=== PATIENT | male | born 1945 | race Caucasian/White ===

== ENCOUNTER 2017-10-05 17:47 | Emergency (ER) | payer MEDICARE, OTHER ==
[2017-10-05 18:12] VITALS: BP 160/60
--- NOTE | 2017-10-05 18:49 | UC ---
Respiratory Complaint HPI - HPI Summary HPI Summary: cough x 5 days productive cough , + chest congestion , pnd no fever, no chills, no sob - History of Current Complaint Chief Complaint: UCRespiratory Stated Complaint: PAINFUL COUGHING, CONGESTION Time Seen by Provider: 10/05/17 18:20 Hx Obtained From: Patient Onset/Duration: Gradual Onset, Lasting Days - 5, Still Present Timing: Constant Severity Initially: Moderate Severity Currently: Moderate Pain Intensity: 3 Pain Scale Used: 0-10 Numeric Character: Cough: Productive - yellow Aggravating Factors: Exertion, Deep Breaths Alleviating Factors: Nothing Associated Signs And Symptoms: Positive: URI, Nasal Congestion. Negative: Dyspnea, Fever, Chills, Pleuritic Chest Pain, Wheezing, Hemoptysis, Dizziness, Calf Pain, Calf Swelling - Allergies/Home Medications Allergies/Adverse Reactions: Allergies Allergy/AdvReac Type Severity Reaction Status Date / Time No Known Allergies Allergy Verified 10/05/17 18:12 Home Medications: Home Medications Aspirin [Shabana Aspirin EC Low Dose 81 MG] 10/05/17 [History] Calcium Carbonate/Vitamin D3 [Caltrate 600+D] 1 chw PO 10/05/17 [History] Folic Acid 1 mg PO 10/05/17 [History] Methotrexate TAB* 2.5 mg PO Q7D 10/05/17 [History Confirmed 10/05/17] Pravastatin (NF) [Pravachol (NF)] 10/05/17 [History] Taurine [Darío Taurine] 1,000 mg PO 10/05/17 [History] predniSONE [Prednisone] 5 mg PO 10/05/17 [History] PMH/Surg Hx/FS Hx/Imm Hx Cardiovascular History: Hypertension - Surgical History Surgical History: None Surgery Procedure, Year, and Place: throat ca surgery - Family History Known Family History: Positive: Hypertension - Social History Alcohol Use: None Substance Use Type: None Smoking Status (MU): Never Smoked Tobacco Review of Systems Constitutional: Negative Skin: Negative Eyes: Negative ENT: Nasal Discharge Respiratory: Cough Cardiovascular: Negative Gastrointestinal: Negative Genitourinary: Negative Is Patient Immunocompromised?: No All Other Systems Reviewed And Are Negative: Yes Physical Exam Triage Information Reviewed: Yes Appearance: Well-Appearing, No Pain Distress, Well-Nourished Vital Signs: Initial Vital Signs Temp 98.0 F 10/05/17 18:06 Pulse 95 10/05/17 18:06 Resp 18 03/07/18 18:06 BP 160/60 10/05/17 18:06 Pulse Ox 97 10/05/17 18:06 Vital Signs Reviewed: Yes Eyes: Positive: Conjunctiva Clear ENT: Positive: Normal ENT inspection, Hearing grossly normal, Pharynx normal Neck: Positive: Supple, Nontender, No Lymphadenopathy Respiratory: Positive: Chest non-tender, Lungs clear, Normal breath sounds Cardiovascular: Positive: RRR, No Murmur, Pulses Normal Skin Exam: Normal UC Diagnostic Evaluation - Laboratory O2 Sat by Pulse Oximetry: 97 Respiratory Course/Dx - Differential Dx/Diagnosis Provider Diagnoses: Bronchitis Discharge - Discharge Plan Condition: Stable Disposition: HOME Prescriptions: Albuterol HFA INHALER* [Ventolin HFA Inhaler*] 2 puff INH Q6H PRN #1 mdi PRN Reason: Wheezing Azithromycin TAB* [Zithromax TAB (Z-APOLLO) 250 mg #6 tabs] 2 tab PO .TODAY, THEN 1 DAILY #1 apollo Benzonatate CAP* [Tessalon 100 MG CAP*] 100 mg PO TID PRN #21 cap PRN Reason: Cough Patient Education Materials: Acute Bronchitis (ED) Referrals: Rand Orona MD [Primary Care Provider] - 7 Days
[2017-10-05] MEDS ORDERED: PPD test dose* 5 TU/0.1 ML TEST (*USE PPD ORDER SET*) ONE (20:25)
== END 2017-10-05 18:34 | disposition home or self-care (01) ==
LOC: UCCORT 17:47
DX: J40 Bronchitis, not specified as acute or chronic (principal); I10 Essential (primary) hypertension
CPT/HCPCS: 99212; G0463

== ENCOUNTER 2017-12-27 10:38 | Emergency (ER) | payer MEDICARE, OTHER ==
[2017-12-27 11:13] VITALS: BP 146/62
--- NOTE | 2017-12-27 11:38 | UC ---
Respiratory Complaint HPI - HPI Summary HPI Summary: cough x 7 days cough is dry , + nasal congest, sore throat , wheezing +fever, chills, sever left ear pain - History of Current Complaint Chief Complaint: UCRespiratory Stated Complaint: SORE THROAT LEFT EAR CONGESTION Time Seen by Provider: 12/27/17 11:05 Hx Obtained From: Patient Onset/Duration: Gradual Onset, Lasting Days - 7, Still Present Timing: Constant Severity Initially: Moderate Severity Currently: Moderate Pain Intensity: 3 Character: Cough: Nonproductive Aggravating Factors: Exertion, Deep Breaths Alleviating Factors: Nothing Associated Signs And Symptoms: Positive: Fever, Chills, URI, Nasal Congestion. Negative: Dyspnea, Pleuritic Chest Pain, Wheezing, Hemoptysis, Dizziness, Calf Pain, Calf Swelling, Edema, Hoarseness, Sinus Discomfort - Allergies/Home Medications Allergies/Adverse Reactions: Allergies Allergy/AdvReac Type Severity Reaction Status Date / Time No Known Allergies Allergy Verified 12/27/17 11:15 PMH/Surg Hx/FS Hx/Imm Hx - Additional Past Medical History Additional PMH: throat cancer Endocrine History: Thyroid Disease - Surgical History Surgical History: None Surgery Procedure, Year, and Place: throat ca surgery 2012 - Family History Known Family History: Positive: Hypertension - Social History Alcohol Use: None Substance Use Type: None Smoking Status (MU): Never Smoked Tobacco Review of Systems Constitutional: Fever, Chills, Fatigue Skin: Negative Eyes: Negative ENT: Sore Throat, Ear Ache, Nasal Discharge Respiratory: Cough Cardiovascular: Negative Is Patient Immunocompromised?: No All Other Systems Reviewed And Are Negative: Yes Physical Exam Triage Information Reviewed: Yes Appearance: Well-Appearing, No Pain Distress, Well-Nourished Vital Signs: Initial Vital Signs Temp 98.4 F 12/27/17 11:03 Pulse 72 12/27/17 11:03 Resp 18 12/27/17 11:03 BP 146/62 12/27/17 11:03 Pulse Ox 97 12/27/17 11:03 Vital Signs Reviewed: Yes Eyes: Positive: Conjunctiva Clear ENT: Positive: Normal ENT inspection, Hearing grossly normal, Pharyngeal erythema, Nasal drainage, TM red - left ear. Negative: Tonsillar swelling, Tonsillar exudate Neck: Positive: Supple, Nontender, No Lymphadenopathy Respiratory: Positive: Chest non-tender, Lungs clear, Normal breath sounds, No respiratory distress Cardiovascular: Positive: RRR, No Murmur, Pulses Normal Skin Exam: Normal UC Diagnostic Evaluation - Laboratory O2 Sat by Pulse Oximetry: 97 Respiratory Course/Dx - Differential Dx/Diagnosis Provider Diagnoses: otitis media left ear. bronchitis Discharge - Sign-Out/Discharge Documenting (check all that apply): Discharge/Admit/Transfer - Discharge Plan Condition: Stable Disposition: HOME Prescriptions: Amoxicillin PO (*) [Amoxicillin 875 MG (*)] 875 mg PO BID #20 tab Codeine Phosphate/Guaifenesin [Cheratussin AC] 10 ml PO Q8H #120 ml MDD 30 ml Patient Education Materials: Ear Infection (ED), Acute Bronchitis (ED) Referrals: Rand Orona MD [Primary Care Provider] - 7 Days - Billing Disposition and Condition Condition: STABLE Disposition: HOME
== END 2017-12-27 11:42 | disposition home or self-care (01) ==
LOC: UCCORT 10:38
DX: H66.92 Otitis media, unspecified, left ear (principal); J40 Bronchitis, not specified as acute or chronic; E07.9 Disorder of thyroid, unspecified; Z82.49 Family history of ischemic heart disease and other diseases of the circulatory system; Z85.818 Personal history of malignant neoplasm of other sites of lip, oral cavity, and pharynx
CPT/HCPCS: 99212; G0463

== ENCOUNTER 2019-04-09 07:45 | Emergency (ER) | payer MEDICARE, OTHER ==
--- NOTE | 2019-04-09 08:04 | ED ---
Complex/Multi-Sys Presentation - HPI Summary HPI Summary: This patient is a 73 year old male accompanied by his presenting to [facility] with a chief complaint of difficulty using his right upper extremity since 2 days ago. He also reports cramps in neck and back of head. His also reports confusion since 2 hours ago. She states he has had difficulty with coordination and has had aphasia as well. 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 Pt denies any fever, chills, erythema of eyes, sore throat, CP, SOB, cough, abdominal pain, N/V, dysuria, hematuria, myalgia, edema, rash, or dizziness. His vital signs in the room are HR 59 BPM, BP 183/70. The patient has had no Hx of CVA or TIA. - History Of Current Complaint Chief Complaint: EDAltMentalStatus Time Seen by Provider: 04/09/19 07:58 Hx Obtained From: Patient, Family/Land Resource Specialist Onset/Duration: Lasting Hours, Lasting Days Associated Signs And Symptoms: Positive: Confusion, Weakness - Allergies/Home Medications Allergies/Adverse Reactions: Allergies Allergy/AdvReac Type Severity Reaction Status Date / Time No Known Allergies Allergy Verified 04/09/19 08:01 Home Medications: Home Medications Acyclovir 200 mg PO DAILY 04/09/19 [History Confirmed 04/09/19] Cholecalciferol (Vitamin D3) [Vitamin D3] 2,000 unit PO DAILY 04/09/19 [History Confirmed 04/09/19] Doxycycline (NF) 5 ml PO DAILY 04/09/19 [History Confirmed 04/09/19] Labetalol HCl 200 mg PO BID 04/09/19 [History Confirmed 04/09/19] Levothyroxine TAB* 125 mcg PO DAILY 04/09/19 [History Confirmed 04/09/19] Revlimid 10 mg PO DAILY 04/09/19 [History Confirmed 04/09/19] Sulfamethoxazole/Trimethoprim 5 ml PO SEE INSTRUCTIONS 04/09/19 [History Confirmed 04/09/19] Tamsulosin CAP* [Flomax CAP*] 0.4 mg PO DAILY 04/09/19 [History Confirmed ] amLODIPine TAB* [Norvasc 5 mg TAB*] 5 mg PO DAILY 04/09/19 [History Confirmed ] traMADol TAB* 50 mg PO DAILY PRN 04/09/19 [History Confirmed 04/09/19] PMH/Surg Hx/FS Hx/Imm Hx Endocrine/Hematology History: Reports: Hx Thyroid Disease Denies: Hx Diabetes Cardiovascular History: Reports: Hx Hypertension Denies: Hx Pacemaker/ICD History: Denies: Hx Dialysis, Hx Renal Disease Musculoskeletal History: Denies: Hx Rheumatoid Arthritis, Hx Osteoporosis Sensory History: Denies: Hx Hearing Aid Psychiatric History: Denies: Hx Panic Disorder - Cancer History Cancer Type, Location and Year: THROAT CANCER 2010 Hx Chemotherapy: Yes - FINSISHED 2012 Hx Radiation Therapy: Yes - FINISHED 2012 - Surgical History Surgery Procedure, Year, and Place: throat ca surgery - PARTIAL TONSILECTOMY AND BX 2010 Infectious Disease History: No Infectious Disease History: Denies: Traveled Outside the [place] in Last 30 Days - Family History Known Family History: Positive: Hypertension - Social History Alcohol Use: None Substance Use Type: Reports: None Smoking Status (MU): Never Smoked Tobacco Review of Systems Negative: Fever, Chills Positive: Other - Loss of vision in left visual field. Negative: Erythema Negative: Sore Throat Negative: Chest Pain Negative: Shortness Of Breath, Cough Negative: Abdominal Pain, Vomiting, Nausea Negative: dysuria, hematuria Positive: Other - Neck and back of the head pain. Negative: Myalgia, Edema Negative: Rash Neurological: Other - Pos altered mental status, aphasia. Neg: Dizziness Positive: Weakness - Right arm All Other Systems Reviewed And Are Negative: Yes Physical Exam - Summary Physical Exam Summary: Constitutional: Well-developed, Well-nourished, Alert. (-) Distressed Skin: Warm, Dry HENT: Normocephalic; Atraumatic Eyes: Conjunctiva normal Neck: Musculoskeletal ROM normal neck. (-) JVD, (-) Stridor, (-) Tracheal deviation Cardio: Rhythm regular, bradycardia, Intact distal pulses; The pedal pulses are 2+ and symmetric. Radial pulses are 2+ and symmetric. (+)Systolic Ejection Murmur grade 3/6. Pulmonary/Chest wall: Effort normal. (-) Respiratory distress, (-) Wheezes, (-) Rales Abd: Soft. (-) Tenderness, (-) Distension, (-) Guarding, (-) Rebound Musculoskeletal: (-) Edema Lymph: (-) Cervical adenopathy Neuro: Alert, Oriented x3, Strength normal, Cranial nerves II-XII are grossly intact. (-) Dysmetria, (-) Nystagmus, (-) Ataxia by finger to nose testing, (-) Sensory deficit. He appears to have some word finding difficulty. Psych: Mood and affect Normal Triage Information Reviewed: Yes Vital Signs On Initial Exam: Initial Vitals Temp Pulse Resp BP Pulse Ox 97.6 F 55 18 165/72 98 04/09/19 07:49 04/09/19 07:49 04/09/19 07:49 04/09/19 07:49 04/09/19 07:49 Vital Signs Reviewed: Yes Diagnostics - Vital Signs Vital Signs Temp Pulse Resp BP Pulse Ox 04/09/19 07:49 97.6 F 55 18 165/72 98 - Laboratory Result Diagrams: 04/09/19 08:07 04/09/19 08:07 Lab Statement: Any lab studies that have been ordered have been reviewed, and results considered in the medical decision making process. - Radiology CXR Radiology Interpretation Completed By: Radiologist Summary of Radiographic Findings: Low lung volumes with linear atelectasis of the right lung base. ED Provider has reviewed this report. - CT Brain CT Interpretation Completed By: Radiologist Summary of CT Findings: No evidence for gross acute infarct, mass effect or hemorrhage. ED provider has reviewed this report. Head CTA CT Interpretation Completed By: Radiologist Summary of CT Findings: 1. Limited Study. 2. Atherosclerosis. 3. Short segment high-grade preocclusive stenosis of the distal left internal carotid artery (99% plus by nascet criteria). 4. Approximate 70 % short segment stenosis of the proximal right internal carotid artery. 4. No aneurysm. Vascular malformation, occlusion, or stenosis of the visualized intracranial circulation. ED Provider has reviewed this report. Cervical Spine CT CT Interpretation Completed By: Radiologist Summary of CT Findings: 1. No evidence for fracture. 2. Moderate to severe cervical spondylosis. 3. Nonspecific lucent lesion within the C3 vertebrak body possibly related to the patient's histroy of multiple myeloma. ED Provider has reviewed this report. - EKG 0807 Cardiac Rate: Bradycardia - 56 BPM EKG Rhythm: Sinus Bradycardia Summary of EKG Findings: No STEMI. National Institutes Of Health - NIH Scale Level of Consciousness: Alert/Keenly Responsive Ask Patient the Month and His/Her Age: Both Correct Ask Pt to Open/Close Eyes and Electric Motor Repairman/Release Non-Paretic Hand: Both Correctly Best Gaze (Only Horizontal Eye Movement): Normal Visual Field Testing: No Visual Loss Facial Paresis-Pt to Smile & Close Eyes or Grimace Symmetry: Normal/Symmetrical Motor Function - Right Arm: Drifts LT 10 seconds Motor Function - Left Arm: No Drift-Holds 10 Seconds Motor Function - Right Leg: Drifts LT 10 seconds Motor Function - Left Leg: No Drift-Holds 10 Seconds Limb Ataxia-Must be out of Proportion to Weakness Present: Absent Sensory (Use Pinprick to Test Arms/Legs/Trunk/Face): Pinprick Less on Affected Best Language (Describe Picture, Name Items): No Aphasia Dysarthria (Read Several Words): Normal Extinction and Inattention: No Abnormality Total Score: 3 Complex Multi-Symp Course/Dx Course Of Treatment: This patient is a 73 year old male accompanied by his presenting to [facility] with a chief complaint of difficulty using his right upper extremity and altered mental status since 2 days ago. Physical exam revealed a 3 /6 grade systolic ejection murmer. The patient had some difficulty finding words. CTA Head revealed 1. Limited Study. 2. Atherosclerosis. 3. Short segment high-grade preocclusive stenosis of the distal left internal carotid artery (99% plus by nascet criteria). 4. Approximate 70 % short segment stenosis of the proximal right internal carotid artery. 4. No aneurysm. Vascular malformation, occlusion, or stenosis of the visualized intracranial circulation. Patient will be signed out to Dr. Burns at 1030 pending transfer for vascular surgery. - Diagnoses Provider Diagnoses: Stenosis of left internal carotid artery Discharge ED - Sign-Out/Discharge Documenting (check all that apply): Sign-Out Patient Signing out patient TO: Sonu Burns Patient Received Moderate/Deep Sedation with Procedure: No - Discharge Plan Condition: Stable Disposition: TRANS HIGHER LVL OF CARE FAC Referrals: Kirsten Ortzi MD [Primary Care Provider] - - Attestation Statements Document Initiated by Scribe: Yes Documenting Scribe: Rafat Tam Provider For Whom Scribe is Documenting (Include Credential): Ken Barlow MD Scribe Attestation: Rafat Harris, scribed for Ken Barlow MD on 04/09/19 at 1149. Status of Scribe Document: Ready
[2019-04-09 08:21] LABS: ABS Eosinophils 0.2 10^3/ul (0-0.6); ABS Lymphocytes 0.7 10^3/ul (1.0-4.8); ABS Monocytes 0.3 10^3/ul (0-0.8); ABS Neutrophils 3.5 10^3/ul (1.5-7.7); Eosinophil % 3.5 %; Hematocrit 37 % (42-52); Hemoglobin 12.4 g/dL (14.0-18.0); Lymphocyte % 14.9 %; Mean Corpuscular HGB Conc 34 g/dL (31-36); Mean Corpuscular Hemoglobin 31 pg (27-31); Mean Corpuscular Volume 91 fL (80-94); Mean Platelet Volume 7.1 fL (7.4-10.4); Nucleated Red Blood Cells % 0.2; Platelet Count 108 10^3/uL (150-450); Red Blood Count 4.05 10^6 /uL (4.18-5.48); Red Cell Distribution Width 14 % (10-15); White Blood Count 4.7 10^3/uL (3.5-10.8)
[2019-04-09 08:26] LABS: INR 0.96 (0.82-1.09)
[2019-04-09 08:33] LABS: Albumin/Globulin Ratio 2.4 (1-3); BUN/Creatinine Ratio 14.5 (8-20); Calcium 8.6 mg/dL (8.6-10.3); EGFR African American 58.1 (>60); Globulin 1.7 g/dL (2-4); Potassium 4.1 mmol/L (3.5-5.0); Total Bilirubin 0.4 mg/dL (0.2-1.0); Total Protein 5.7 g/dL (6.4-8.9)
[2019-04-09] MEDS ORDERED: Iodixanol* (CONTRAST) 320 MG/ML 100 ML SDV IV ONE (08:40)
--- OUTSIDE RECORDS SUMMARY | 2019-04-09 08:40 | XMS REPORT | Continuity of Care Document ---
:1945 External Reference #:[id number] Author Name Umesh Chinchilla M.D. Address [address] [place] [address] Care Team Providers Name Role Phone Andrade Connelly M.D. - Hematology & Care Team Information [facility] Roel Queen M.D. - Care Team Information [facility] [phone] Otolaryngology Umesh Lawton MD - Rheumatology Care Team Information [facility] [phone] Rand Orona M.D. - Family Medicine Care Team Information [facility] Problems Active Problems Provider Date Giant cell arteritis Onset: Hyperthyroidism Onset: Primary malignant neoplasm of ear, nose Onset: AND/OR throat Migraine with aura Umesh Chinchilla M.D. Onset: 02/11/2015 Nuclear senile cataract Umesh Chinchilla M.D. Onset: 02/11/2015 Combined form of senile cataract Umesh Chinchilla M.D. Onset: 08/15/2015 Multiple myeloma Umesh Chinchilla M.D. Onset: 03/20/2019 Hemopoietic stem cell transplant Umesh Chinchilla M.D. Onset: 03/20/2019 Social History Type Date Description Comments Sex Unknown ETOH Use Rarely consumes alcohol Tobacco Use Start: Unknown Patient has never smoked Recreational Drug Use Denies Drug Use Smoking Status Reviewed: 03/20/19 Patient has never smoked Allergies, Adverse Reactions, Alerts Description No Known Drug Allergies Medications Active Medications SIG Qnty Indications Ordering Date Provider Pravastatin Sodium Rand Orona 20mg M.D. Tablets Levothyroxine Sodium take 1 tablet once Unknown daily 125mcg Tablets Methotrexate take 4 tablets by Unknown 2.5mg mouth every Tuesday Tablets Tamsulosin HCL Unknown 0.4mg Capsules Sulfamethoxazole-Trime take 20 milliliters Unknown thoprim by mouth Tue 200-40mg/5ML And Tue Labetalol HCL Unknown 200mg Tablets Doxycycline 1 by mouth every Unknown 40mg Capsules day DR D3 Vitamin Unknown 400Unit/ML Liquid Immunizations Description No Information Available Vital Signs Description No Information Available Results Description No Information Available Procedures Description No Information Available Medical Devices Description No Information Available Encounters Description No Information Available Assessments Date Code Description Provider 03/20/2019 H25.813 Combined forms of age-related cataract, Umesh Chinchilla M.D. bilateral Plan of Treatment Future Appointment(s):03/24/2020 8:45 am - Umesh Chinchilla M.D. at Umesh Chinchilla MD, 03/20/2019 - Umesh Chinchilla M.D.H25.813 Combined forms of age- related cataract, bilateralComments:Smoking can increase the risk of developing or worsening any eye related disease, as well as affect your overall health. If you are a smoker, we strongly recommend that you quit.If you are not a smoker , we strongly recommend that you do not start. You have been diagnosed with cataracts. If you are happy with your vision as it is now, then we will see you at your next scheduled appointment. If you feel like your vision is getting worse before your scheduled appointment, please call Merlene at [phone].Follow up:1 Year Follow Up Diagnostic Refraction You can expect to have your eyes dilated at your next visit.If Dr. Chinchilla orders any additional testing , it may require extra time. We recommend that you bring sunglasses, as dilation drops often make you light sensitive until they wear off. We always recommend you bring someone to drive you home if you are uncomfortable driving with your eyes dilated. If you have any questions before your next visit, feel free to call our office at . Functional Status Description No Information Available Mental Status Description No Information Available Referrals Description No Information Available
--- NOTE | 2019-04-09 11:24 | ED ---
Progress - Progress Note Progress Note: Receiving sign-out from Dr. Barlow at [address] Wills, Vascular Surgery at [facility] was consulted and accepted the patient for transfer. Dr. Hernandes, hospitalist, was agreeable to the transfer. This plan for transfer was discussed with the patient and he was agreeable with this plan. Course/Dx - Course Course Of Treatment: Receiving sign-out from Dr. Barlow at [address] Wills, Vascular Surgery at [facility] accepted the patient for transfer. This plan for transfer was discussed with the patient and he was agreeable with this plan. - Diagnoses Provider Diagnoses: Stenosis of left internal carotid artery - Provider Notifications Discussed Care Of Patient With: Mike Wills MD - Vascular Surgery [facility] Time Discussed With Above Provider: 11:25 Instructed by Provider To: Transfer Discharge ED - Sign-Out/Discharge Documenting (check all that apply): Patient Departure - Transfer Patient Received Moderate/Deep Sedation with Procedure: No - Discharge Plan Condition: Stable Disposition: TRANS HIGHER LVL OF CARE FAC Referrals: Kirsten Ortiz MD [Primary Care Provider] - - Billing Disposition and Condition Condition: STABLE Disposition: Trans Higher Lvl of Care Fac - Attestation Statements Document Initiated by Scribe: Yes Documenting Scribe: Rafat Tam Provider For Whom Yuri is Documenting (Include Credential): Sonu Burns MD Scribroberto carlos Attestation: Rafat Harris, scribed for Sonu Burns MD on 04/09/19 at 1159. Scribe Documentation Reviewed: Yes Provider Attestation: The documentation as recorded by the Rafat harris accurately reflects the service I personally performed and the decisions made by me, Sonu Burns MD Status of Scribe Document: Viewed
[2019-04-09 12:43] LABS: Urine Appearance Clear; Urine Bilirubin Negative (Negative); Urine Blood Negative (Negative); Urine Color Straw; Urine Glucose Negative (Negative); Urine Ketones Negative (Negative); Urine Nitrite Negative (Negative); Urine Protein Negative (Negative); Urine Specific Gravity 1.038 (1.010-1.030); Urine Urobilinogen Negative (Negative)
[2019-04-09 15:15] VITALS: BP 142/78
== END 2019-04-09 15:16 | disposition short-term general hospital (02) ==
LOC: ED 07:45
DX: I65.22 Occlusion and stenosis of left carotid artery (principal); R41.0 Disorientation, unspecified; R53.1 Weakness; Z79.899 Other long term (current) drug therapy; E03.9 Hypothyroidism, unspecified; I10 Essential (primary) hypertension; Z85.21 Personal history of malignant neoplasm of larynx; M54.2 Cervicalgia; R00.1 Bradycardia, unspecified
CPT/HCPCS: 36415; 70450; 70496; 70498; 71045; 72125; 80053; 81003; 83605; 84484; 85025; 85610; 93005; 99285; Q9967

== ENCOUNTER 2020-08-15 23:14 | Inpatient (IN) ==
[2020-08-16 00:19] LABS: ABS Lymphocytes 0.5 10^3/ul (1.0-4.8); ABS Monocytes 0.4 10^3/ul (0-0.8); ABS Neutrophils 1.4 10^3/ul (1.5-7.7); Eosinophil % 0.1 %; Hematocrit 35 % (42-52); Hemoglobin 11.7 g/dL (14.0-18.0); Lymphocyte % 20.7 %; Mean Corpuscular HGB Conc 33 g/dL (31-36); Mean Corpuscular Hemoglobin 30 pg (27-31); Mean Corpuscular Volume 91 fL (80-94); Mean Platelet Volume 6.8 fL (7.4-10.4); Nucleated Red Blood Cells % 0.1; Platelet Count 81 10^3/uL (150-450); Red Blood Count 3.86 10^6 /uL (4.18-5.48); Red Cell Distribution Width 17 % (10-15); White Blood Count 2.2 10^3/uL (3.5-10.8)
[2020-08-16 00:37] LABS: Albumin 4.1 g/dL (3.2-5.2); Albumin/Globulin Ratio 1.8 (1-3); BUN/Creatinine Ratio 13.3 (8-20); EGFR African American 40.8 (>60); EGFR Non-African American 33.7 (>60); Globulin 2.3 g/dL (2-4); Total Bilirubin 0.6 mg/dL (0.2-1.0); Total Protein 6.4 g/dL (6.4-8.9)
[2020-08-16 00:43] LABS: Potassium 5.3 mmol/L (3.5-5.0)
[2020-08-16 00:51] LABS: TSH Ultra Thyroid Stim Horm 0.39 mcIU/mL (0.34-5.60)
[2020-08-16] MEDS ORDERED: NS 0.9% 1000 ml BAG 1,000 ML IV SCH ×2 (04:30→12:00)
[2020-08-16] MEDS ORDERED: Heparin 5000 UNITS/ML 1 mL VIAL SUBCUT SCH (06:00)
[2020-08-16 07:46] LABS: Calcium 7.5 mg/dL (8.6-10.3); EGFR African American 44.7 (>60); EGFR Non-African American 36.9 (>60); Potassium 4.4 mmol/L (3.5-5.0)
[2020-08-16 07:56] LABS: ABS Lymphocytes 0.8 10^3/ul (1.0-4.8); ABS Monocytes 0.3 10^3/ul (0-0.8); ABS Neutrophils 1.2 10^3/ul (1.5-7.7); Hematocrit 33 % (42-52); Lymphocyte % 33.2 %; Mean Corpuscular HGB Conc 34 g/dL (31-36); Mean Corpuscular Hemoglobin 31 pg (27-31); Mean Corpuscular Volume 91 fL (80-94); Mean Platelet Volume 7.1 fL (7.4-10.4); Platelet Count 74 10^3/uL (150-450); Red Blood Count 3.57 10^6 /uL (4.18-5.48); Red Cell Distribution Width 16 % (10-15); White Blood Count 2.3 10^3/uL (3.5-10.8)
[2020-08-17 06:14] LABS: Calcium 7.4 mg/dL (8.6-10.3); Potassium 4.3 mmol/L (3.5-5.0)
[2020-08-17 06:20] LABS: BUN/Creatinine Ratio 18.5 (8-20); EGFR African American 52.7 (>60); EGFR Non-African American 43.5 (>60)
[2020-08-17 06:22] LABS: ABS Monocytes 0.3 10^3/ul (0-0.8); ABS Neutrophils 0.9 10^3/ul (1.5-7.7); Eosinophil % 0.3 %; Hematocrit 31 % (42-52); Hemoglobin 10.5 g/dL (14.0-18.0); Lymphocyte % 44.4 %; Mean Corpuscular HGB Conc 34 g/dL (31-36); Mean Corpuscular Hemoglobin 31 pg (27-31); Mean Corpuscular Volume 90 fL (80-94); Mean Platelet Volume 6.7 fL (7.4-10.4); Nucleated Red Blood Cells % 0.1; Platelet Count 71 10^3/uL (150-450); Red Blood Count 3.42 10^6 /uL (4.18-5.48); Red Cell Distribution Width 16 % (10-15); White Blood Count 2.2 10^3/uL (3.5-10.8)
[2020-08-17] MEDS ORDERED: NS 0.9% 1000 ml BAG 1,000 ML IV SCH (12:00)
[2020-08-17 16:53] LABS: Urine Appearance Cloudy; Urine Bilirubin Negative (Negative); Urine Blood Negative (Negative); Urine Color Yellow; Urine Glucose Negative (Negative); Urine Ketones Negative (Negative); Urine Nitrite Negative (Negative); Urine Protein Negative (Negative); Urine Specific Gravity 1.015 (1.010-1.030); Urine Urobilinogen Negative (Negative)
[2020-08-18 06:55] LABS: Hematocrit 31 % (42-52); Hemoglobin 10.7 g/dL (14.0-18.0); Mean Corpuscular HGB Conc 34 g/dL (31-36); Mean Corpuscular Hemoglobin 31 pg (27-31); Mean Corpuscular Volume 91 fL (80-94); Mean Platelet Volume 6.6 fL (7.4-10.4); Platelet Count 67 10^3/uL (150-450); Red Blood Count 3.44 10^6 /uL (4.18-5.48); Red Cell Distribution Width 16 % (10-15); White Blood Count 1.9 10^3/uL (3.5-10.8)
[2020-08-18 07:09] LABS: BUN/Creatinine Ratio 17.9 (8-20); Calcium 7.5 mg/dL (8.6-10.3); EGFR African American 63.2 (>60); EGFR Non-African American 52.3 (>60); Potassium 4.3 mmol/L (3.5-5.0)
[2020-08-18 07:28] LABS: ABS Lymphocytes 0.8 10^3/ul (1.0-4.8); ABS Monocytes 0.3 10^3/ul (0-0.8); ABS Neutrophils 0.8 10^3/ul (1.5-7.7); Eosinophil % 1.5 %; Lymphocyte % 43.6 %; Nucleated Red Blood Cells % 0.3
[2020-08-18 12:05] VITALS: BP 101/53
== END 2020-08-18 14:05 | disposition home or self-care (01) | DRG 177 ==
LOC: MED 23:14 → ED 23:14 → MED 08-16 06:35
PROVIDERS: ADMIT Internal Medicine Interventional Cardiology; ATTEND Internal Medicine

== ENCOUNTER 2023-08-18 16:14 | Inpatient (IN) ==
[2023-08-18] MEDS ORDERED: NS 0.9% 1000 ml BAG 1,000 ML IV ONE ×2 (16:36→17:28)
[2023-08-18 17:13] LABS: ABS Lymphocytes 0.6 10^3/uL (1.0-4.8); ABS Monocytes 0.2 10^3/uL (0.0-1.1); ABS Neutrophils 2.1 10^3/uL (1.5-7.6); ABS Nucleated RBC 0.01 10^3/ul; Eosinophil % 0.6 %; Hematocrit 37.5 % (38-53); Hemoglobin 12.8 g/dL (13.2-16.3); Lymphocyte % 21.1 %; Mean Corpuscular Hemoglobin 30.3 pg (27-33); Mean Corpuscular Hgb Conc 34.3 g/dL (31-36); Mean Corpuscular Volume 88.4 fL (80-97); Mean Platelet Volume 7.5 fL (7.5-11.2); Nucleated Red Blood Cells % 0.2 %/100WBC (0.0-0.8); Platelet Count 136 10^3/uL (150-450); Red Blood Count 4.24 10^6/uL (4.06-5.63); Red Cell Distribution Width 18.3 % (12-17)
[2023-08-18 17:32] LABS: Albumin 3.9 g/dL (3.2-5.2); Albumin/Globulin Ratio 1.3 (1-3); C Reactive Protein 10.69 mg/L (<8.01); Creatinine, Serum 1.73 mg/dL (0.67-1.17); Magnesium 1.7 mg/dL (1.9-2.7); Phosphorus 2.2 mg/dL (2.5-5.0); Potassium 3.4 mmol/L (3.5-5.0); Total Bilirubin 0.4 mg/dL (0.2-1.0); Total Protein 6.9 g/dL (6.4-8.9); eGFR CKD-EPI 40.4 (>60)
[2023-08-18 18:20] LABS: Rapid COVID-19 Molecular Undetected (Undetected)
[2023-08-18 18:37] LABS: Influenza A Molecular Negative (Negative); Influenza B Molecular Negative (Negative)
[2023-08-18] MEDS ORDERED: cefTRIAXone 1 gm/50 mL D5W 1 GM/50 ML BAG IV ONE (18:40)
[2023-08-18 18:51] LABS: High Sensitivity Troponin 1 Hr 6 pg/mL (<20)
[2023-08-18 19:18] LABS: Urine Appearance Cloudy; Urine Bilirubin Negative (Negative); Urine Blood Negative (Negative); Urine Color Yellow; Urine Glucose Negative (Negative); Urine Ketones Negative (Negative); Urine Nitrite Negative (Negative); Urine Protein 1+(30 mg/dL) (Negative); Urine Specific Gravity 1.023 (1.002-1.030); Urine Urobilinogen Negative (Negative)
[2023-08-18 19:23] LABS: Urine Bacteria Absent (Absent); Urine Red Blood Cell Trace(0-2/hpf) (Absent); Urine White Blood Cell Trace(0-5/hpf) (Absent)
[2023-08-18] MEDS ORDERED: Magnesium Sulfate 2 gm BAG 2 GM/50 ML BAG IVPB ONE (20:20)
[2023-08-18] MEDS: Lactated Ringers 1000 ml BAG 1,000 ML IV SCH (21:31)
[2023-08-18] MEDS: Enoxaparin 30 MG/0.3 ML SYR SUBCUT SCH (21:35)
[2023-08-18] MEDS ORDERED: Magnesium Sulfate IV 1GM/100ML 1 GM/100 ML BAG IV ONE (22:20)
[2023-08-18 22:49] LABS: Ferritin 285.7 ng/mL (24-336)
[2023-08-18] MEDS ORDERED: Gadobenate (CONTRAST) 529 MG/ML 10 ML SDV IV ONE (23:28)
[2023-08-19 05:27] LABS: ABS Lymphocytes 0.6 10^3/uL (1.0-4.8); ABS Monocytes 0.4 10^3/uL (0.0-1.1); ABS Neutrophils 2.8 10^3/uL (1.5-7.6); Hemoglobin 11.5 g/dL (13.2-16.3); Lymphocyte % 15.1 %; Mean Corpuscular Hemoglobin 29.8 pg (27-33); Mean Corpuscular Hgb Conc 33.8 g/dL (31-36); Mean Platelet Volume 7.5 fL (7.5-11.2); Platelet Count 116 10^3/uL (150-450); Red Blood Count 3.86 10^6/uL (4.06-5.63); Red Cell Distribution Width 17.8 % (12-17); White Blood Count 3.7 10^3/uL (3.6-10.2)
[2023-08-19 05:45] LABS: Calcium 7.8 mg/dL (8.6-10.3); Creatinine, Serum 1.35 mg/dL (0.67-1.17); Potassium 3.7 mmol/L (3.5-5.0); eGFR CKD-EPI 54.4 (>60)
[2023-08-19 08:24] LABS: Magnesium 2.1 mg/dL (1.9-2.7)
[2023-08-19] MEDS: Cholecalciferol (VIT D3) 1,000 unit TAB PO SCH ×2 (08:30→08:41)
[2023-08-19] MEDS: Pentoxifylline CR 400 mg TAB 400 MG PO SCH ×3 (08:30→18:16)
[2023-08-19] MEDS: Aspirin EC 81 mg TAB.EC (enteric coated) PO SCH (08:30)
[2023-08-19 08:36] LABS: HDL Cholesterol 40.2 mg/dL
[2023-08-19 09:22] LABS: Rapid COVID-19 Molecular Undetected (Undetected)
[2023-08-19] MEDS: Lactated Ringers 1000 ml BAG 1,000 ML IV SCH (10:10)
[2023-08-19 10:50] LABS: Influenza A Molecular Negative (Negative); Influenza B Molecular Negative (Negative)
[2023-08-19] MEDS ORDERED: cefTRIAXone 1 gm/50 mL D5W 1 GM/50 ML BAG IV SCH (13:00)
[2023-08-19] MEDS ORDERED: LENALIDOMIDE 5 MG PO SCH (21:00)
[2023-08-19] MEDS: Enoxaparin 30 MG/0.3 ML SYR SUBCUT SCH (21:21)
[2023-08-20] MEDS: Lactated Ringers 1000 ml BAG 1,000 ML IV SCH (00:10)
[2023-08-20] MEDS: Aspirin EC 81 mg TAB.EC (enteric coated) PO SCH (09:49)
[2023-08-20] MEDS: Cholecalciferol (VIT D3) 1,000 unit TAB PO SCH (09:49)
[2023-08-20] MEDS: Pantoprazole VIAL 40 MG VIAL IV SCH (09:49)
[2023-08-20] MEDS: Pentoxifylline CR 400 mg TAB 400 MG PO SCH ×3 (09:49→17:10)
[2023-08-20 11:19] LABS: Hematocrit 29.2 % (38-53); Hemoglobin 9.9 g/dL (13.2-16.3); Mean Corpuscular Hgb Conc 34.1 g/dL (31-36); Mean Corpuscular Volume 87.9 fL (80-97); Red Blood Count 3.32 10^6/uL (4.06-5.63); Red Cell Distribution Width 18.4 % (12-17); White Blood Count 2.9 10^3/uL (3.6-10.2)
[2023-08-20 11:43] LABS: Calcium 7.5 mg/dL (8.6-10.3); Creatinine, Serum 1.14 mg/dL (0.67-1.17); Magnesium 1.7 mg/dL (1.9-2.7); Phosphorus 1.8 mg/dL (2.5-5.0); Potassium 3.4 mmol/L (3.5-5.0); eGFR CKD-EPI 66.7 (>60)
[2023-08-20] MEDS ORDERED: Magnesium Sulfate 2 gm BAG 2 GM/50 ML BAG IVPB ONE (11:51)
[2023-08-20] MEDS ORDERED: Potassium Chlor 20 meq TAB.ER PO ONE (11:51)
[2023-08-20 12:17] LABS: ABS Lymphocytes 0.8 10^3/uL (1.0-4.8); ABS Monocytes 0.3 10^3/uL (0.0-1.1); ABS Neutrophils 1.8 10^3/uL (1.5-7.6); Lymphocyte % 25.9 %; Mean Platelet Volume 7.1 fL (7.5-11.2); Platelet Count 99 10^3/uL (150-450)
[2023-08-20] MEDS ORDERED: Magnesium Sulfate IV 1GM/100ML 1 GM/100 ML BAG IV ONE (13:51)
[2023-08-20] MEDS: Enoxaparin 30 MG/0.3 ML SYR SUBCUT SCH (20:09)
[2023-08-20 20:20] LABS: Calcium 7.5 mg/dL (8.6-10.3); Creatinine, Serum 1.1 mg/dL (0.67-1.17); Magnesium 2.4 mg/dL (1.9-2.7); Potassium 3.8 mmol/L (3.5-5.0); eGFR CKD-EPI 69.6 (>60)
[2023-08-21] MEDS: Pentoxifylline CR 400 mg TAB 400 MG PO SCH ×3 (07:26→17:13)
[2023-08-21] MEDS: Aspirin EC 81 mg TAB.EC (enteric coated) PO SCH (10:09)
[2023-08-21] MEDS: Pantoprazole VIAL 40 MG VIAL IV SCH (10:09)
[2023-08-21] MEDS: Cholecalciferol (VIT D3) 1,000 unit TAB PO SCH (10:09)
[2023-08-21] MEDS: Enoxaparin 30 MG/0.3 ML SYR SUBCUT SCH (20:13)
[2023-08-22 06:27] LABS: ABS Eosinophils 0.1 10^3/uL (0.0-0.5); ABS Lymphocytes 0.8 10^3/uL (1.0-4.8); ABS Monocytes 0.2 10^3/uL (0.0-1.1); ABS Neutrophils 1.4 10^3/uL (1.5-7.6); Eosinophil % 2.6 %; Hematocrit 30.8 % (38-53); Hemoglobin 10.5 g/dL (13.2-16.3); Lymphocyte % 32.2 %; Mean Corpuscular Hemoglobin 29.9 pg (27-33); Mean Corpuscular Hgb Conc 34.2 g/dL (31-36); Mean Corpuscular Volume 87.4 fL (80-97); Mean Platelet Volume 6.9 fL (7.5-11.2); Platelet Count 116 10^3/uL (150-450); Red Blood Count 3.52 10^6/uL (4.06-5.63); Red Cell Distribution Width 17.8 % (12-17); White Blood Count 2.5 10^3/uL (3.6-10.2)
[2023-08-22 06:57] LABS: Calcium 7.8 mg/dL (8.6-10.3); Creatinine, Serum 1.02 mg/dL (0.67-1.17); Magnesium 1.7 mg/dL (1.9-2.7); Phosphorus 2.6 mg/dL (2.5-5.0); Potassium 3.4 mmol/L (3.5-5.0); eGFR CKD-EPI 76.2 (>60)
[2023-08-22] MEDS ORDERED: Potassium Chlor 20 meq TAB.ER PO ONE (07:44)
[2023-08-22] MEDS ORDERED: Magnesium Sulfate 2 gm BAG 2 GM/50 ML BAG IVPB ONE (07:44)
[2023-08-22] MEDS: Pantoprazole VIAL 40 MG VIAL IV SCH (08:42)
[2023-08-22] MEDS: Cholecalciferol (VIT D3) 1,000 unit TAB PO SCH (08:42)
[2023-08-22] MEDS: Aspirin EC 81 mg TAB.EC (enteric coated) PO SCH (08:43)
[2023-08-22] MEDS: Pentoxifylline CR 400 mg TAB 400 MG PO SCH ×2 (08:46→13:05)
[2023-08-22 11:20] VITALS: BP 122/54
== END 2023-08-22 13:37 | disposition home or self-care (01) | DRG 641 ==
LOC: ED 16:14 → EDHOLD 16:14 → SUATTDRO 20:11 → MEDTELE 22:25 → SUATTDRO 08-20 13:25
PROVIDERS: ADMIT Internal Medicine; ATTEND Internal Medicine

== ENCOUNTER 2023-09-10 10:23 | Observation (INO) ==
[2023-09-10 11:20] LABS: ABS Lymphocytes 1.3 10^3/uL (1.0-4.8); ABS Monocytes 0.6 10^3/uL (0.0-1.1); Eosinophil % 0.2 %; Hematocrit 35.1 % (38-53); Mean Corpuscular Hgb Conc 34.2 g/dL (31-36); Mean Corpuscular Volume 90.6 fL (80-97); Mean Platelet Volume 7.2 fL (7.5-11.2); Platelet Count 174 10^3/uL (150-450); Red Blood Count 3.88 10^6/uL (4.06-5.63); Red Cell Distribution Width 20.1 % (12-17)
[2023-09-10 11:32] LABS: Activated Partial Thrombo Time 21.7 seconds (26.0-38.0); INR 1.05 (0.83-1.13)
[2023-09-10 11:37] LABS: Albumin 3.8 g/dL (3.2-5.2); Albumin/Globulin Ratio 1.2 (1-3); C Reactive Protein 37.82 mg/L (<8.01); Calcium 8.7 mg/dL (8.6-10.3); Creatinine, Serum 2.73 mg/dL (0.67-1.17); Globulin 3.1 g/dL (2-4); Potassium 4.2 mmol/L (3.5-5.0); Total Bilirubin 0.7 mg/dL (0.2-1.0); Total Protein 6.9 g/dL (6.4-8.9); eGFR CKD-EPI 23.4 (>60)
[2023-09-10] MEDS: Lactated Ringers 1000 ml BAG 1,000 ML IV ONE ×2 (11:55→13:06)
[2023-09-10 12:45] LABS: High Sensitivity Troponin 1 Hr 51 pg/mL (<20)
[2023-09-10 12:58] LABS: Magnesium 1.8 mg/dL (1.9-2.7)
[2023-09-10 13:29] LABS: Urine Appearance Turbid; Urine Bilirubin Negative (Negative); Urine Blood Negative (Negative); Urine Color Yellow; Urine Glucose Negative (Negative); Urine Ketones Negative (Negative); Urine Nitrite Negative (Negative); Urine Protein 1+ (>=30 mg/dL) (Negative); Urine Specific Gravity 1.018 (1.002-1.030); Urine Urobilinogen Negative (Negative); Urine pH 7.5 (5.0-8.0)
[2023-09-10 13:49] LABS: Urine Bacteria Absent /HPF (Absent); Urine Red Blood Cell Absent /HPF (0-Trace); Urine Squamous Epithelial Cell Present /HPF (Absent); Urine White Blood Cell 2+(11-20/hpf) /HPF (0-Trace)
[2023-09-10] MEDS: cefTRIAXone 1 gm/50 mL D5W 1 GM/50 ML BAG IV SCH (17:07)
[2023-09-10] MEDS ORDERED: Acetaminophen IV 1 GM/100ML 1,000 MG/100 ML BAG IV PRN (19:18)
[2023-09-10] MEDS ORDERED: Senna TAB 8.6 mg TAB PO PRN (19:20)
[2023-09-10] MEDS: Magnesium Sulfate IV 1GM/100ML 1 GM/100 ML BAG IV ONE (22:10)
[2023-09-10] MEDS: Pentoxifylline CR 400 mg TAB 400 MG PO SCH (22:16)
[2023-09-10] MEDS: Enoxaparin 30 MG/0.3 ML SYR SUBCUT SCH (22:20)
[2023-09-11 05:56] LABS: ABS Eosinophils 0.2 10^3/uL (0.0-0.5); ABS Lymphocytes 1.3 10^3/uL (1.0-4.8); ABS Monocytes 0.5 10^3/uL (0.0-1.1); ABS Neutrophils 3.9 10^3/uL (1.5-7.6); ABS Nucleated RBC 0.01 10^3/ul; Eosinophil % 2.9 %; Hematocrit 31.1 % (38-53); Hemoglobin 10.4 g/dL (13.2-16.3); Lymphocyte % 22.6 %; Mean Corpuscular Hemoglobin 30.6 pg (27-33); Mean Corpuscular Hgb Conc 33.6 g/dL (31-36); Nucleated Red Blood Cells % 0.1 %/100WBC (0.0-0.8); Platelet Count 129 10^3/uL (150-450); Red Blood Count 3.41 10^6/uL (4.06-5.63); Red Cell Distribution Width 19.4 % (12-17); White Blood Count 5.9 10^3/uL (3.6-10.2)
[2023-09-11 06:14] LABS: Calcium 8.2 mg/dL (8.6-10.3); Creatinine, Serum 2.02 mg/dL (0.67-1.17); Potassium 4.2 mmol/L (3.5-5.0); eGFR CKD-EPI 33.5 (>60)
[2023-09-11] MEDS: Aspirin EC 81 mg TAB.EC (enteric coated) PO SCH (09:24)
[2023-09-11] MEDS: Polyethylene Glycol 3350 17 GM PACKET PO SCH (09:24)
[2023-09-11 09:30] LABS: TSH Ultra Thyroid Stim Horm 3.71 mcIU/mL (0.34-5.60)
[2023-09-11 16:01] LABS: Immature Retic Fraction 0.46
[2023-09-11 16:04] LABS: RBC Retic Count 3.41 10^6/ul (4.06-5.63)
[2023-09-11 16:05] LABS: Corrected Retic Count 0.5 % (0.5-2.2); Hematocrit for Retic CNT 31.1 % (38-53)
[2023-09-11 16:13] LABS: Folate > 20.00 ng/mL (5.90-24.80)
[2023-09-11 16:14] LABS: Vitamin B12 445 pg/mL (180-914)
[2023-09-12 06:39] LABS: ABS Eosinophils 0.1 10^3/uL (0.0-0.5); ABS Lymphocytes 1.1 10^3/uL (1.0-4.8); ABS Monocytes 0.4 10^3/uL (0.0-1.1); ABS Neutrophils 3.1 10^3/uL (1.5-7.6); Eosinophil % 2.8 %; Hematocrit 30.8 % (38-53); Hemoglobin 10.6 g/dL (13.2-16.3); Lymphocyte % 23.9 %; Mean Corpuscular Hemoglobin 30.9 pg (27-33); Mean Corpuscular Hgb Conc 34.4 g/dL (31-36); Mean Corpuscular Volume 89.8 fL (80-97); Mean Platelet Volume 7.2 fL (7.5-11.2); Platelet Count 131 10^3/uL (150-450); Red Blood Count 3.43 10^6/uL (4.06-5.63); Red Cell Distribution Width 19.6 % (12-17); White Blood Count 4.7 10^3/uL (3.6-10.2)
[2023-09-12 06:55] LABS: Calcium 8.2 mg/dL (8.6-10.3); Creatinine, Serum 1.39 mg/dL (0.67-1.17); eGFR CKD-EPI 52.5 (>60)
[2023-09-12 09:43] VITALS: BP 159/57
== END 2023-09-12 12:50 | disposition home or self-care (01) ==
LOC: EDHOLD 10:23 → ED 10:23 → MEDTELE 18:00
PROVIDERS: ADMIT Hospitalist; ATTEND Hospitalist